=== PATIENT | female | born 1970 | race African-American/Black ===

== ENCOUNTER 2016-12-28 15:11 | Emergency (ER) | payer SELFPAY ==
[~2016-12-28] VITALS: Ht 170.2 cm; Wt 74.0 kg
[2016-12-29] MEDS ORDERED: LORAZEPAM 1MG TABLET PO ONE (00:45)
[2016-12-29 00:54] LABS: HEMATOCRIT 35.4 % (36.0-48.0); HEMOGLOBIN 12.1 g/dL (12.0-16.0); MEAN CORPUSCULAR HEMOGLOBIN 28.8 pg (28.0-32.0); MEAN CORPUSCULAR VOLUME 84.3 fL (81.0-99.0); PLATELET 224 x1000/uL (130-400); RED CELL DISTRIBUTION WIDTH 14.6 % (11.6-14.6)
[2016-12-29 01:02] LABS: CHLORIDE 103 mEq/L (98-107)
[2016-12-29 01:10] LABS: CARBON DIOXIDE 28 mEq/L (21-32)
[2016-12-29 01:29] LABS: CLARITY URINE CLOUDY (CLEAR); COLOR URINE YELLOW (YELLOW); GLUCOSE URINE NEGATIVE (NEGATIVE); KETONES URINE NEGATIVE (NEGATIVE); LEUKOCYTE ESTERASE URINE NEGATIVE (NEGATIVE); NITRITE URINE NEGATIVE (NEGATIVE); OCCULT BLOOD URINE NEGATIVE (NEGATIVE); PH URINE 6.5 (4.5-8.0); PROTEIN URINE NEGATIVE (NEGATIVE); SPECIFIC GRAVITY URINE 1.031 (1.005-1.030)
[2016-12-29 01:30] VITALS: BP 106/74
== END 2016-12-29 01:50 | disposition home or self-care (01) ==
LOC: ER 15:24
DX: F41.8 Other specified anxiety disorders (principal); F43.0 Acute stress reaction; Z63.79 Other stressful life events affecting family and household; Z56.89 Other problems related to employment
CPT/HCPCS: 36415; 80048; 81001; 81025; 85027; 99284